=== PATIENT | female | born 1960 | race Caucasian/White ===

== ENCOUNTER → 2016-11-03 | Outpatient (CLI) | payer OTHER ==
--- NOTE | 2016-11-04 07:52 | XR ---
EXAMINATION TYPE: XR shoulder complete RT DATE OF EXAM: 11/03/2016 5:49 PM CLINICAL HISTORY: Right shoulder pain for one year. TECHNIQUE: Three views of the right shoulder are obtained. COMPARISON: None. FINDINGS: There is no acute fracture/dislocation evident in the right shoulder. The acromioclavicul ar and glenohumeral joint spaces appear within normal limits. The visualized ribs are intact and unr emarkable. IMPRESSION: Unremarkable study.
== END | disposition home or self-care (01) ==
LOC: RADXRMAIN 17:34
PROVIDERS: ATTEND Family Medicine
DX: M25.511 Pain in right shoulder (principal)

== ENCOUNTER → 2016-12-08 | Outpatient (CLI) | payer OTHER ==
--- NOTE | 2016-12-10 13:35 | MM ---
Reason for exam: screening (asymptomatic). Last mammogram was performed 11 years and 1 month ago. History: Benign excisional biopsy of the left breast, 1997. Physical Findings: A clinical breast exam by your physician is recommended on an annual basis and results should be correlated with mammographic findings. MG Screening Mammo w CAD Bilateral CC and MLO view(s) were taken. No prior studies available for comparison. There are scattered fibroglandular densities. There is no discrete abnormality. Benign right axillary lymph nodes. ASSESSMENT: Negative, BI-RAD 1 RECOMMENDATION: Routine screening mammogram of both breasts in 1 year.
== END | disposition home or self-care (01) ==
LOC: RADMAMWWP 16:31
PROVIDERS: ATTEND Family Medicine
DX: Z12.31 Encounter for screening mammogram for malignant neoplasm of breast (principal)

== ENCOUNTER → 2018-07-18 | Outpatient (CLI) | payer OTHER ==
--- NOTE | 2018-07-19 08:32 | MM ---
Reason for exam: clinical finding. Last mammogram was performed 1 year and 7 months ago. History: Patient history of other cancer. Benign excisional biopsy of the left breast, 1997. Physical Findings: Nurse Summary: 1cm nodule in the left breast at 2 o'clock (nurse ivania). MG Diagnostic Mammo w CAD EDVIN Bilateral CC and MLO view(s) were taken. Prior study comparison: December 08, 2016, bilateral MG screening mammo w CAD. November 09, 2005, bilateral screening mammogram w/CAD. The breast tissue is heterogeneously dense. This may lower the sensitivity of mammography. There is chronic nodularity in the right axilla. There is no discrete abnormality. These results were verbally communicated with the patient and result sheet given to the patient on 07/18/18. ASSESSMENT: Incomplete: need additional imaging evaluation, BI-RAD 0 RECOMMENDATION: Ultrasound of the left breast. (palpable by patient)
--- NOTE | 2018-07-19 08:33 | USB ---
Reason for exam: additional evaluation requested from abnormal screening. History: Patient history of other cancer. Benign excisional biopsy of the left breast, 1997. US Breast Limited LT Left limited breast ultrasound including focal area of concern, retroareolar and axilla demonstrates no cystic or solid lesion seen. These results were verbally communicated with the patient and result sheet given to the patient on 07/18/18. ASSESSMENT: Negative, BI-RAD 1 RECOMMENDATION: Routine screening mammogram of both breasts in 1 year. Manage on a clinical basis with regard to left palpable.
== END | disposition home or self-care (01) ==
LOC: RADMAMWWP 14:10
PROVIDERS: ATTEND Internal Medicine
DX: N63.0 Unspecified lump in unspecified breast (principal); R92.8 Other abnormal and inconclusive findings on diagnostic imaging of breast
CPT/HCPCS: 77066

== ENCOUNTER → 2021-02-20 | Outpatient (CLI) | payer OTHER ==
--- NOTE | 2021-02-24 10:09 | MM ---
Reason for exam: screening (asymptomatic). Last mammogram was performed 2 years and 7 months ago. History: Patient is postmenopausal and history of other cancer. Benign excisional biopsy of the left breast, 1997. Took hormonal contraceptives beginning at age 19. Physical Findings: A clinical breast exam by your physician is recommended on an annual basis and results should be correlated with mammographic findings. MG Screening Mammo w CAD Bilateral CC and MLO view(s) were taken. Prior study comparison: July 18, 2018, bilateral MG diagnostic mammo w CAD [facility]. December 08, 2016, bilateral MG screening mammo w CAD. There are scattered fibroglandular densities. There is no discrete abnormality. ASSESSMENT: Negative, BI-RAD 1 RECOMMENDATION: Routine screening mammogram of both breasts in 1 year.
== END | disposition home or self-care (01) ==
LOC: RADMAMWWP 09:36
PROVIDERS: ATTEND Family Medicine
DX: Z12.31 Encounter for screening mammogram for malignant neoplasm of breast (principal); Z78.0 Asymptomatic menopausal state; Z85.9 Personal history of malignant neoplasm, unspecified; Z79.3 Long term (current) use of hormonal contraceptives
CPT/HCPCS: 77067

== ENCOUNTER 2021-05-20 17:23 | Emergency (ER) | payer OTHER ==
[2021-05-20] MEDS ORDERED: CASIRIVIMAB (REGN10933) (EUA) 600 MG, IMDEVIMAB (REGN10987) (EUA) 600 MG in SODIUM CHLO... IVPB ONE (22:45)
[2021-05-20] MEDS ORDERED: SODIUM CHLORIDE 0.9% 50 ML IVPB ONE (22:45)
--- NOTE | 2021-05-20 23:22 | ED ---
General Adult HPI - General Chief complaint: Upper Respiratory Infection Stated complaint: covid+, wants infusion Time Seen by Provider: 05/20/21 21:41 Source: patient Mode of arrival: ambulatory - History of Present Illness Initial comments: 61-year-old female presents to the emergency department requesting the monoclonal antibody infusion. Patient does provide documentation of a positive COVID test. States symptoms began around Thanksgiving with sinus pressure, nasal drainage, low-grade fever, and nausea. States she has not taken any oral medications to treat her symptoms prior to arrival. Patient states her symptoms have worsened over the past few days and spoke with her primary care provider who recommended she get tested. Patient states she has not had a headache, shortness of breath, difficulty breathing, chest pain or tightness, abdominal pain, vomiting, diarrhea, hematuria, or dysuria. - Related Data Home Medications Medication Instructions Recorded Confirmed Atenolol/Chlorthalidone 1 each PO DAILY 08/20/14 08/22/14 [Atenolol-Chlorthalidone 50-25] Allergies Allergy/AdvReac Type Severity Reaction Status Date / Time Sulfa (Sulfonamide Allergy Rash/Hives Verified 05/20/21 18:41 Antibiotics) Review of Systems ROS Statement: Those systems with pertinent positive or pertinent negative responses have been documented in the HPI. ROS Other: All systems not noted in ROS Statement are negative. Past Medical History Past Medical History: Hypertension History of Any Multi-Drug Resistant Organisms: None Reported Past Surgical History: Breast Surgery, Hysterectomy Additional Past Surgical History / Comment(s): LT BREAST LUMPECTOMY Past Anesthesia/Blood Transfusion Reactions: Postoperative Nausea & Vomiting (PONV) Smoking Status: Never smoker Past Alcohol Use History: None Reported Past Drug Use History: None Reported General Exam Limitations: no limitations (This is a well-developed, well-nourished female in no acute distress. Initial temperature 98.6, pulse 74, respirations 18, blood pressure 144/80, pulse ox 95% on room air.) General appearance: alert, in no apparent distress Eye exam: Present: normal appearance, PERRL, EOMI. Absent: scleral icterus, conjunctival injection, periorbital swelling ENT exam: Present: normal exam, normal oropharynx, mucous membranes moist Respiratory exam: Present: normal lung sounds bilaterally. Absent: respiratory distress, wheezes, rales, rhonchi, stridor Cardiovascular Exam: Present: regular rate, normal rhythm, normal heart sounds. Absent: systolic murmur, diastolic murmur, rubs, gallop, clicks GI/Abdominal exam: Present: soft, normal bowel sounds. Absent: distended, tenderness, guarding, rebound, rigid Neurological exam: Present: alert, oriented X3, CN II-XII intact Psychiatric exam: Present: normal affect, normal mood Skin exam: Present: warm, dry, intact, normal color. Absent: rash Course Vital Signs 05/20/21 05/20/21 18:38 22:38 Temperature 98.6 F Pulse Rate 74 76 Respiratory 19 20 Rate Blood Pressure 144/88 170/96 O2 Sat by Pulse 95 98 Oximetry Medical Decision Making - Medical Decision Making This is a 61-year-old female who presents to the emergency department requesting a monoclonal antibody infusion. Patient does provide documentation of the positive test and meets criteria. Upon exam, patient is well-appearing, able to converse without shortness of breath, afebrile, not tachycardic, nor is she tachypneic. Patient's room air saturation is 95% or greater. Risks and benefits of infusion were discussed with patient she verbalizes understanding and is agreeable to this plan. Patient was able to tolerate infusion without difficulty therefore will be discharged home to follow up with her primary care provider as needed. Return parameters were discussed in detail. Patient verbalizes understanding and agrees with this plan. This patient's care was discussed with my attending Dr. Sal. Disposition Clinical Impression: COVID-19 Disposition: HOME SELF-CARE Condition: Stable Instructions (If sedation given, give patient instructions): Coronavirus Disease 2019 (COVID-19) Additional Instructions: May treat symptoms such as fever or body aches with Tylenol. Follow-up with her primary care provider for a recheck via telephone where video conference. Return to the emergency department with any new, worsening, or concerning symptoms. Is patient prescribed a controlled substance at d/c from ED?: No Referrals: Jen Dalton MD [Primary Care Provider] - 1-2 days
[2021-05-21 01:56] VITALS: BP 151/76; PULSE 72; RESP 18; TEMP 98.2
== END 2021-05-21 01:57 | disposition home or self-care (01) ==
LOC: EC 17:23
DX: U07.1 COVID-19 (principal); I10 Essential (primary) hypertension; Z88.2 Allergy status to sulfonamides; Z90.710 Acquired absence of both cervix and uterus
CPT/HCPCS: 99283; Q0243

== ENCOUNTER → 2023-09-09 | Outpatient (CLI) | payer OTHER ==
--- NOTE | 2023-09-13 11:13 | MM ---
Reason for Exam: Screening (asymptomatic). Last mammogram was performed 2 year(s) and 6 month(s) ago. Patient History: Menarche at age 10. First Full-Term at age 18. Left ovary removed at age 47. Hysterectomy at age 47. Postmenopausal. Other cancer. Hormonal Contraceptives, from age 19 until age 46. 1998, Benign Excisional Biopsy on the left side. Risk Values: Courtney 5 year model risk: 1.4%. NCI Lifetime model risk: 6.5%. Prior Study Comparison: 12/08/2016 Bilateral Screening Mammogram, [facility]. 07/18/2018 Bilateral Diagnostic Mammogram, [facility]. 02/20/2021 Bilateral Screening Mammogram, [facility]. Tissue Density: There are scattered areas of fibroglandular density. Findings: Analyzed By CAD. There is no suspicious group of microcalcifications or new suspicious mass in either breast. Stable lymph node in the right upper outer quadrant. Asymmetric densities in the outer margin of bilateral breast are similar to prior exams. Benign oil cyst seen in the subareolar right breast. Stable chronic nodularity left breast. Overall Assessment: Benign, BI-RAD 2 Management: Screening Mammogram of both breasts in 1 year. . Patient should continue monthly self-breast exams. A clinical breast exam by your physician is recommended on an annual basis. This exam should not preclude additional follow-up of suspicious palpable abnormalities. Note on Courtney scores and lifetime risk: 1. A Courtney score greater than 3% is considered moderate risk. If this is the case, consider specialist referral to assess eligibility for a risk reducing agent. 2. If overall lifetime risk for the development of breast cancer is 20% or higher, the patient may qualify for future screening with alternating mammogram and breast MRI. Electronically signed and approved by: Yasmany Ham M.D. Radiologis
== END | disposition home or self-care (01) ==
LOC: RADMAMWWP 07:43
PROVIDERS: ATTEND Family Medicine
DX: Z12.31 Encounter for screening mammogram for malignant neoplasm of breast (principal); Z78.0 Asymptomatic menopausal state
CPT/HCPCS: 77067

== ENCOUNTER → 2024-08-30 | Outpatient (CLI) | payer OTHER ==
--- NOTE | 2024-08-30 11:04 | MM ---
Reason for Exam: Clinical finding. Last screening mammogram was performed 12 month(s) ago. Patient History: Menarche at age 10. First Full-Term at age 18. Left ovary removed at age 47. Hysterectomy at age 47. Postmenopausal. Other cancer. Hormonal Contraceptives, from age 19 until age 46. 1998, Benign Excisional Biopsy on the left side. Risk Values: Courtney 5 year model risk: 1.5%. NCI Lifetime model risk: 6.3%. Tissue Density: There are scattered areas of fibroglandular density. Findings: Analyzed By CAD. At the site of clinical concern which corresponds to the right 12:00 position 3 cm from the nipple there appears to be a lucent lesion which could reflect adenoidal cyst measuring 6 mm. Ultrasound correlation recommended. No additional nodules or masses seen. Intramammary lymph node on the right. No suspicious microcalcifications. Overall Assessment: Incomplete: need additional imaging evaluation, BI-RAD 0 Management: Diagnostic Breast Ultrasound of the right breast. . Results were given to the patient verbally at the time of exam. Patient should continue monthly self-breast exams. A clinical breast exam by your physician is recommended on an annual basis. This exam should not preclude additional follow-up of suspicious palpable abnormalities. Note on Courtney scores and lifetime risk: 1. A Courtney score greater than 3% is considered moderate risk. If this is the case, consider specialist referral to assess eligibility for a risk reducing agent. 2. If overall lifetime risk for the development of breast cancer is 20% or higher, the patient may qualify for future screening with alternating mammogram and breast MRI. [facility], , 08/30/2024 11:01 AM. Electronically signed and approved by: Tremaine Ziegler M.D. Radiologis
--- NOTE | 2024-08-30 11:27 | USB ---
Reason for Exam: Clinical finding. Patient History: Menarche at age 10. First Full-Term at age 18. Left ovary removed at age 47. Hysterectomy at age 47. Postmenopausal. Other cancer. Hormonal Contraceptives, from age 19 until age 46. 1998, Benign Excisional Biopsy on the left side. Risk Values: Courtney 5 year model risk: 1.5%. NCI Lifetime model risk: 6.3%. Technique: Method: Targeted. Prior Study Comparison: 07/18/2018 Bilateral Diagnostic Mammogram, [facility]. 02/20/2021 Bilateral Screening Mammogram, [facility]. 09/09/2023 Bilateral MG screening mammo w CAD, [facility]. Findings: The upper section of the breast of the right breast, the axilla of the right breast and the retroareolar of the right breast were scanned. Ultrasound was performed at the right 12:00 position including the right retroareolar region and right axilla. Cystic lesion noted at the site of clinical concern right 12:00 position 3 cm from the nipple measuring 5 x 6 mm. No solid masses appreciated. Overall Assessment: Benign, BI-RAD 2 Management: Screening Mammogram of both breasts in 1 year. A clinical breast exam by your physician is recommended on an annual basis and results should be correlated with mammographic findings. This exam should not preclude additional follow-up of suspicious palpable abnormalities. Results were given to the patient verbally at the time of exam. [facility], , 08/30/2024 11:23 AM. Electronically signed and approved by: Tremaine Ziegler M.D. Radiologis
== END | disposition home or self-care (01) ==
LOC: RADMAMWWP 10:36
PROVIDERS: ATTEND Family Medicine
DX: N63.12 Unspecified lump in the right breast, upper inner quadrant (principal); R92.323 Mammographic fibroglandular density, bilateral breasts; Z92.0 Personal history of contraception; Z78.0 Asymptomatic menopausal state
CPT/HCPCS: 77066; 76642; G0279; 77062